=== PATIENT | male | born 1995 | race Caucasian/White ===

== ENCOUNTER 2020-07-20 20:33 | Emergency (ER) | payer OTHER ==
[~2020-07-20] VITALS: Ht 187.9 cm; Wt 159.4 kg
[2020-07-20 20:35] VITALS: BP 147/81
[2020-07-20] MEDS ORDERED: RABIES VACCINE HUMAN DIPL CELL 1 ML/2.5 UNITS SYR IM ONE (20:45)
[2020-07-20] MEDS ORDERED: TETANUS,DIPTH,PERTUSS P/F (BOOSTRIX) 0.5 ML VIAL IM ONE (20:45)
[2020-07-20] MEDS ORDERED: RABIES IMMUNE GLOBULIN 300 UNIT/ML 5 ML (HyperRAB) IM ONE (20:45)
--- NOTE | 2020-07-20 20:59 | ED General ---
General Chief Complaint: Bite-Animal/Human/Insect Stated Complaint: DOG BITE ON RT KNEE Nursing Triage Note: Patient works for the [employer]. He was at a residence for work and their dog bit him on the right thigh. Patient has a small abrasion to the right thigh. No bleeding is noted. It is unclear as to whether the dog is up to date on vaccinations. 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 He is unsure if the dog is up-to-date on shots and was told to come to the emergency department. He has some swelling at the bite wound at his right distal quadriceps region but he is able to ambulate without difficulty. The bite wound does not appear to be deep and appears to be more of a surface abrasion. He says he is unsure on his tetanus status. He is in no obvious distress with normal vital signs. Allergies and Home Medications Allergies Coded Allergies: No Known Drug Allergies (Unverified , 07/20/20) Patient Home Medication List Home Medication List Reviewed: Yes Review of Systems Review of Systems Constitutional: no symptoms reported Respiratory: no symptoms reported Cardiovascular: no symptoms reported Musculoskeletal: no symptoms reported Skin: other (bite wound) Psychiatric/Neurological: No Symptoms Reported All Other Systems Reviewed Negative Unless Noted: Yes Past Pzknutp-Ckrwns-Gmnyyh Hx Patient Social History Alcohol Use: Denies Use Smoking Status: Current Someday Smoker Type Used: Cigarettes Recent Infectious Disease Expo: No Past Medical History Surgeries: No Respiratory: No Cardiac: No Neurological: No Genitourinary: No Gastrointestinal: No Musculoskeletal: No Endocrine: No HEENT: No Cancer: No Psychosocial: No Integumentary: No Physical Exam Vital Signs Vital Signs - First Documented 07/20/20 20:35 Temp 36.6 Pulse 97 Resp 18 B/P (MAP) 147/81 (103) Pulse Ox 96 O2 Delivery Room Air Capillary Refill : Less Than 3 Seconds Height, Weight, BMI Height: '" Weight: lbs. oz. kg; 45.00 BMI Method: General Appearance: No Apparent Distress, WD/WN Respiratory: No Respiratory Distress Cardiovascular: Regular Rate, Rhythm Extremity: Normal Capillary Refill Neurologic/Psychiatric: Alert, Oriented x3 Skin: Warm/Dry, Other (Approximate 2 cm scratch to the right lateral distal quadriceps with no deep wound identified. Small amount of swelling but no bruising currently.) Progress/Results/Core Measures Suspected Sepsis Recent Fever Within 48 Hours: No Infection Criteria Present: None New/Unexplained Altered Menta: No Sepsis Screen: No Definite Risk SIRS Temperature: Pulse: 97 Respiratory Rate: 18 Blood Pressure 147 /81 Mean: 103 Results/Orders My Orders Orders - MAT MADSEN DO Rabies Immune Globulin/Pf Inj (Hyperrab (07/20/20 20:45) Rabies Vaccine Human Dipl Cell (Rabavert (07/20/20 20:45) Dipht,Pertuss(Acell),Tet Adult (Boostrix (07/20/20 20:45) Vital Signs/I&O 07/20/20 20:35 Temp 36.6 Pulse 97 Resp 18 B/P (MAP) 147/81 (103) Pulse Ox 96 O2 Delivery Room Air Capillary Refill : Less Than 3 Seconds Blood Pressure Mean: 103 Progress Note : Progress Note I discussed benefits and risks of rabies treatment and he said he would very much want to be treated for rabies given he does not know the dog's vaccination status. I gave him the alternative of having the dog observed by a microsystems engineer and he said he rather just to be treated with the rabies vaccine and immunoglo bulin. Patient given tetanus immunoglobulin around the wound in addition he received the rabies vaccine and was told to come back on days 3 7 and 14. Patient's tetanus was updated. Patient will not be started on empiric antibiotics given the wound is surface but I told him if he has worsening redness pain swelling or other concerns he should come back to emergency department for further evaluation. Departure Impression Primary Impression: Dog bite Qualified Codes: W54.0XXA - Bitten by dog, initial encounter Additional Impression: Leg abrasion, non-infected Disposition: 01 HOME, SELF-CARE Condition: Stable Departure-Patient Inst. Referrals: NO,LOCAL PHYSICIAN (PCP/Family) Primary Care Physician Patient Instructions: Animal Bites (DC) MAT MADSEN DO July 20, 2020 20:59
== END 2020-07-20 21:31 | disposition home or self-care (01) ==
LOC: ER FS 20:34
DX: S80.211A Abrasion, right knee, initial encounter (principal); F17.210 Nicotine dependence, cigarettes, uncomplicated; Z23 Encounter for immunization; Z20.3 Contact with and (suspected) exposure to rabies; W54.0XXA Bitten by dog, initial encounter
CPT/HCPCS: 90375; 90675; 90715; 99284